=== PATIENT | male | born 1950 | race Caucasian/White ===

== ENCOUNTER 2017-04-06 09:25 | Inpatient (IN) ==
[2017-04-06] MEDS ORDERED: SODIUM CHLORIDE 0.9% 500 ML IV STA ×2 (10:34→12:38)
[2017-04-06 11:02] LABS: ABG Base Excess -7.9 MMOL/L (-2.5-2.5); ABG Oxygen Saturation 96.7 % (95-100); ABG PCO2 41.6 MM HG (35-48); ABG PH 7.263 (7.35-7.45); ABG TCO2 17.2 MMOL/L (23-27); Allen Test Positive; Pt O2 Delivery Device Room Air
[2017-04-06 11:10] LABS: Basophils % 0.1 % (0.0-0.8); Eosinophils # 0.1 10*3/uL (0.0-0.87); Eosinophils % 0.5 % (0.00-10.9); Hematocrit 32.5 VOL% (42.0-52.0); Hemoglobin 10.8 GM/DL (14.0-18.0); Immature Granulocytes % 0.5 %; Immature Granulocytes Absolute 0.05 #; Lymphocytes # 1.2 10*3/uL (1.4-4.0); Lymphocytes % 11.9 % (21.2-54.2); Mean Corpuscular HGB Conc 33.2 GM/DL (32-36); Mean Corpuscular Hemoglobin 31 PG (27-34); Mean Corpuscular Volume 92.6 FL (87-102); Monocytes # 0.6 10*3/uL (0.11-0.8); Monocytes % 6.3 % (1.7-12.7); Neutrophils # 8.1 10*3/uL (1.4-7.4); Neutrophils % 80.7 % (38.7-73.9); Platelet Count 210 T/CUMM (130-400); Red Blood Count 3.51 MC/CUMM (3.8-5.5); Red Cell Distribution Width 13.1 % (9.3-17.3)
[2017-04-06 11:16] LABS: Apearance,Urine CLEAR (Clear); Bilirubin,Urine Negative (Negative); Blood, Urine Small mg/dL (Negative); Glucose,Urine (UA) Negative (Negative); Hyaline Casts,Urine 14 /LPF (0-3); Ketones,Urine Negative (Negative); Mucus,Urine Occasional /LPF (Occasional); Nitrite,Urine Negative (Negative); Protein,Urine Negative; RBC,Urine <1 /HPF (0-4); Urine Color Straw (Yellow); Urine Specific Gravity 1.009 (1.001-1.035); Urine Urobilinogen < 2.0 EU/DL (0.2-1.0); WBC,Urine <1 /HPF (0-6)
[2017-04-06 11:18] LABS: PT Patient Result 10.1 SECS
[2017-04-06 11:24] LABS: Barbiturates Screen,Urine Negative (Negative); Benzodiazepines Screen,Urine Negative (Negative); Cannabinoid Screen,Urine Negative (Negative); Opiate Screen,Urine Positive (Negative); Phencyclidine Screen,Urine Negative (Negative)
[2017-04-06 11:47] LABS: Alanine Aminotransferase 38 U/L (16-61); Albumin 3.8 G/DL (3.4-5.0); Alkaline Phosphatase 71 U/L (45-117); Aspartate Amino Transferase 35 U/L (0-37); Bilirubin,Total < 0.39 MG/DL (0.2-1.0); Blood Urea Nitrogen 47 MG/DL (7-18); CKMB % 1.4 %; Calcium 9.2 MG/DL (8.5-10.1); Glucose 120 MG/DL (74-106); Magnesium 2.3 MG/DL (1.8-2.4); Osmolality,Calculated 289.5 MOS/KG (273-304); Sodium 139 MMOL/L (136-145); Total Protein 7.4 G/DL (6.4-8.3); Troponin I Only < 0.015 NG/ML (0.00-0.045)
[2017-04-06 11:50] LABS: Ammonia 27 UMOL/L (11-32)
[2017-04-06] MEDS ORDERED: LORazepam 2 MG/1 ML VIAL ONE (11:57)
[2017-04-06 11:58] LABS: Potassium 6.6 MMOL/L (3.5-5.1)
[2017-04-06] MEDS ORDERED: LORazepam 2 MG/1 ML VIAL IV STA ×2 (12:01→16:50)
[2017-04-06] MEDS ORDERED: CALCIUM CHLORIDE 1,000 MG/10 ML SYRINGE IV STA (12:06)
[2017-04-06] MEDS ORDERED: SODIUM CHLORIDE 0.9% 1,000 ML IV STA (12:09)
[2017-04-06] MEDS ORDERED: CALCIUM CHLORIDE 1,000 MG/10 ML SYRINGE IV ONE (12:18)
[2017-04-06] MEDS ORDERED: SODIUM POLYSTYRENE SULFATE 15 GM/60 ML BOTTLE ONE ×2 (12:18→16:04)
[2017-04-06] MEDS ORDERED: SODIUM POLYSTYRENE SULFATE 15 GM/60 ML BOTTLE PO STA ×2 (12:19→16:15)
[2017-04-06] MEDS ORDERED: FUROSEMIDE 20 MG/2 ML VIAL ONE (12:22)
[2017-04-06] MEDS ORDERED: FUROSEMIDE 20 MG/2 ML VIAL IV STA (12:38)
[2017-04-06 12:48] LABS: Prolactin 7.8 NG/ML
[2017-04-06] MEDS ORDERED: DEXTROSE 50% 25 GM/50 ML SYRINGE IV ONE (16:05)
[2017-04-06] MEDS ORDERED: INSULIN REGULAR 100 UNIT/ML ONE (16:06)
[2017-04-06] MEDS ORDERED: INSULIN REGULAR 100 UNIT/ML IV STA (16:15)
[2017-04-06] MEDS ORDERED: DEXTROSE 50% 25 GM/50 ML VIAL IV STA (16:15)
[2017-04-06] MEDS ORDERED: ACETAMINOPHEN 325 MG TABLET PO PRN (16:20)
[2017-04-06] MEDS ORDERED: ONDANSETRON 4 MG/2 ML VIAL IV PRN (16:20)
[2017-04-06] MEDS ORDERED: HYDROmorphone 2 MG TABLET PO PRN (16:20)
[2017-04-06 16:31] LABS: Calcium 9.9 MG/DL (8.5-10.1); Osmolality,Calculated 289.5 MOS/KG (273-304)
[2017-04-06 16:32] LABS: Potassium 5.9 MMOL/L (3.5-5.1)
[2017-04-06] MEDS: SODIUM CHLORIDE 0.9% 1,000 ML IV SCH (18:08)
[2017-04-06] MEDS: SODIUM POLYSTYRENE SULFATE 15 GM/60 ML BOTTLE PO SCH (20:16)
[2017-04-06] MEDS: oxyCODONE/ACETAMINOPHEN 5-325 MG TABLET PO SCH ×2 (20:17→22:49)
[2017-04-06] MEDS: PREGABALIN 100 MG CAPSULE PO SCH ×2 (20:17→22:49)
[2017-04-06] MEDS: DOCUSATE SODIUM 100 MG CAPSULE PO SCH (22:48)
[2017-04-06] MEDS: ZALEPLON 5 MG CAPSULE PO SCH (22:48)
[2017-04-06] MEDS: BACLOFEN 20 MG TABLET PO SCH (22:49)
[2017-04-06] MEDS: AMITRIPTYLINE 10 MG TABLET PO SCH (22:49)
[2017-04-06] MEDS: HYOSCYAMINE 0.375 MG PO SCH (22:49)
[2017-04-07] MEDS: SODIUM POLYSTYRENE SULFATE 15 GM/60 ML BOTTLE PO SCH ×3 (01:05→15:58)
[2017-04-07] MEDS: SODIUM CHLORIDE 0.9% 1,000 ML IV SCH ×3 (04:35→23:08)
[2017-04-07 05:28] LABS: Basophils % 0.2 % (0.0-0.8); Eosinophils # 0.1 10*3/uL (0.0-0.87); Hematocrit 29.3 VOL% (42.0-52.0); Hemoglobin 9.6 GM/DL (14.0-18.0); Immature Granulocytes % 0.5 %; Immature Granulocytes Absolute 0.03 #; Lymphocytes # 1.2 10*3/uL (1.4-4.0); Lymphocytes % 20.1 % (21.2-54.2); Mean Corpuscular HGB Conc 32.8 GM/DL (32-36); Mean Corpuscular Hemoglobin 31 PG (27-34); Mean Corpuscular Volume 94.5 FL (87-102); Mean Platelet Volume 9.7 FL (9.6-12.0); Monocytes # 0.5 10*3/uL (0.11-0.8); Monocytes % 8.2 % (1.7-12.7); Neutrophils # 4.1 10*3/uL (1.4-7.4); Platelet Count 175 T/CUMM (130-400); Red Cell Distribution Width 13.5 % (9.3-17.3); White Blood Count 5.9 T/CUMM (4-12)
[2017-04-07 06:15] LABS: Albumin 3.2 G/DL (3.4-5.0); Bilirubin,Total 0.6 MG/DL (0.2-1.0); Calcium 8.5 MG/DL (8.5-10.1); Magnesium 2.1 MG/DL (1.8-2.4); Osmolality,Calculated 294.8 MOS/KG (273-304); Potassium 4.9 MMOL/L (3.5-5.1); Total Protein 6.2 G/DL (6.4-8.3)
[2017-04-07] MEDS ORDERED: DICLOFENAC POTASSIUM 50 MG TABLET PO SCH (09:00)
[2017-04-07] MEDS ORDERED: AZILSARTAN PO SCH (09:00)
[2017-04-07] MEDS ORDERED: CHLORTHALIDONE PO SCH (09:00)
[2017-04-07] MEDS ORDERED: fentaNYL 25 MCG/HR PATCH TRANSDERM SCH (09:00)
[2017-04-07] MEDS: BACLOFEN 20 MG TABLET PO SCH ×2 (10:12→20:50)
[2017-04-07] MEDS: oxyCODONE/ACETAMINOPHEN 5-325 MG TABLET PO SCH ×3 (10:12→20:52)
[2017-04-07] MEDS: ENOXAPARIN 30 MG/0.3 ML SYRINGE SUBCUT SCH (10:13)
[2017-04-07] MEDS: ASPIRIN EC 81 MG TABLET PO SCH (10:14)
[2017-04-07] MEDS: PREGABALIN 100 MG CAPSULE PO SCH ×3 (10:14→20:51)
[2017-04-07] MEDS: DOCUSATE SODIUM 100 MG CAPSULE PO SCH ×2 (10:14→20:50)
[2017-04-07] MEDS: CETIRIZINE 10 MG TABLET PO SCH (10:15)
[2017-04-07] MEDS: PANTOPRAZOLE 40 MG VIAL IV SCH (10:16)
[2017-04-07] MEDS: LIDOCAINE 5% PATCH TRANSDERM SCH (10:16)
[2017-04-07] MEDS: HYOSCYAMINE 0.375 MG PO SCH ×2 (13:23→20:52)
[2017-04-07] MEDS: AMITRIPTYLINE 10 MG TABLET PO SCH (20:50)
[2017-04-07] MEDS: ZALEPLON 5 MG CAPSULE PO SCH (20:50)
[2017-04-08] MEDS: SODIUM POLYSTYRENE SULFATE 15 GM/60 ML BOTTLE PO SCH ×2 (00:19→09:26)
[2017-04-08 05:40] LABS: Basophils % 0.3 % (0.0-0.8); Eosinophils # 0.1 10*3/uL (0.0-0.87); Eosinophils % 2.8 % (0.00-10.9); Hematocrit 28.8 VOL% (42.0-52.0); Hemoglobin 9.4 GM/DL (14.0-18.0); Immature Granulocytes % 0.3 %; Immature Granulocytes Absolute 0.01 #; Lymphocytes # 1.1 10*3/uL (1.4-4.0); Lymphocytes % 28.9 % (21.2-54.2); Mean Corpuscular HGB Conc 32.6 GM/DL (32-36); Mean Corpuscular Hemoglobin 31 PG (27-34); Mean Corpuscular Volume 94.4 FL (87-102); Mean Platelet Volume 10.2 FL (9.6-12.0); Monocytes # 0.4 10*3/uL (0.11-0.8); Monocytes % 10.1 % (1.7-12.7); Neutrophils # 2.3 10*3/uL (1.4-7.4); Neutrophils % 57.6 % (38.7-73.9); Platelet Count 169 T/CUMM (130-400); Red Blood Count 3.05 MC/CUMM (3.8-5.5); Red Cell Distribution Width 13.4 % (9.3-17.3)
[2017-04-08 06:24] LABS: Calcium 8.1 MG/DL (8.5-10.1); Magnesium 1.8 MG/DL (1.8-2.4); Potassium 4.5 MMOL/L (3.5-5.1)
[2017-04-08] MEDS ORDERED: PNEUMOCOCCAL VACCINE (13 VALENT) 0.5 ML SYRINGE IM ONE (08:00)
[2017-04-08] MEDS ORDERED: INFLUENZA VIRUS VACCINE 0.5 ML SYRINGE IM ONE (08:00)
[2017-04-08 08:48] VITALS: BP 189/91
[2017-04-08] MEDS ORDERED: FUROSEMIDE 20 MG TABLET PO SCH (09:00)
[2017-04-08] MEDS ORDERED: POTASSIUM CHLORIDE 20 MEQ TABLET PO SCH (09:00)
[2017-04-08] MEDS: CETIRIZINE 10 MG TABLET PO SCH (09:20)
[2017-04-08] MEDS: ENOXAPARIN 30 MG/0.3 ML SYRINGE SUBCUT SCH (09:20)
[2017-04-08] MEDS: ASPIRIN EC 81 MG TABLET PO SCH (09:20)
[2017-04-08] MEDS: PANTOPRAZOLE 40 MG VIAL IV SCH (09:20)
[2017-04-08] MEDS: BACLOFEN 20 MG TABLET PO SCH (09:20)
[2017-04-08] MEDS: DOCUSATE SODIUM 100 MG CAPSULE PO SCH (09:21)
[2017-04-08] MEDS: oxyCODONE/ACETAMINOPHEN 5-325 MG TABLET PO SCH (09:21)
[2017-04-08] MEDS: PREGABALIN 100 MG CAPSULE PO SCH (09:21)
[2017-04-08] MEDS: LIDOCAINE 5% PATCH TRANSDERM SCH (09:21)
[2017-04-08] MEDS: HYOSCYAMINE 0.375 MG PO SCH (09:26)
[2017-04-08] MEDS: SODIUM CHLORIDE 0.9% 1,000 ML IV SCH (09:27)
[2017-04-26] MEDS ORDERED: RISEDRONATE SODIUM 150 MG PO SCH (09:00)
== END 2017-04-08 13:50 | DRG 918 ==
LOC: N.ED 09:25 → N.EDINP 16:57 → N.ICU 20:40 → N.4E 04-07 13:48
PROVIDERS: ADMIT Family Medicine; ATTEND Family Medicine

== ENCOUNTER 2018-09-19 11:48 | Inpatient (IN) ==
[2018-09-19] MEDS ORDERED: SODIUM CHLORIDE 0.9% 1,000 ML IV STA ×2 (12:52→14:27)
[2018-09-19 13:47] LABS: Basophils % 0.2 % (0.0-0.8); Eosinophils # 0.2 10*3/uL (0.0-0.87); Eosinophils % 1.6 % (0.00-10.9); Hematocrit 34.8 VOL% (42.0-52.0); Hemoglobin 11.5 GM/DL (14.0-18.0); Immature Granulocytes % 0.5 %; Immature Granulocytes Absolute 0.05 #; Lymphocytes # 1.8 10*3/uL (1.4-4.0); Lymphocytes % 17.6 % (21.2-54.2); Mean Corpuscular Volume 88.8 FL (87-102); Mean Platelet Volume 9.4 FL (9.6-12.0); Monocytes % 8.5 % (1.7-12.7); Neutrophils % 71.6 % (38.7-73.9); Platelet Count 203 T/CUMM (130-400); Red Blood Count 3.92 MC/CUMM (3.8-5.5); Red Cell Distribution Width 13.3 % (9.3-17.3); White Blood Count 10.2 T/CUMM (4-12)
[2018-09-19 14:22] LABS: Alanine Aminotransferase 60 U/L (16-61); Albumin 3.3 G/DL (3.4-5.0); Alkaline Phosphatase 79 U/L (45-117); Aspartate Amino Transferase 32 U/L (0-37); Bilirubin,Total < 0.39 MG/DL (0.2-1.0); Blood Urea Nitrogen 82 MG/DL (7-18); Calcium 7.4 MG/DL (8.5-10.1); Glucose 96 MG/DL (74-106); Osmolality,Calculated 294.1 MOS/KG (273-304); Total Protein 6.4 G/DL (6.4-8.3)
[2018-09-19] MEDS ORDERED: POTASSIUM CHLORIDE 20 MEQ TABLET PO STA (14:27)
[2018-09-19] MEDS ORDERED: ONDANSETRON 4 MG/2 ML VIAL IV PRN (14:30)
[2018-09-19 14:48] LABS: Apearance,Urine CLEAR (Clear); Bacteria,Urine Occasional /HPF (Few); Bilirubin,Urine Negative (Negative); Blood, Urine Small mg/dL (Negative); Glucose,Urine (UA) Negative (Negative); Hyaline Casts,Urine 11 /LPF (0-3); Ketones,Urine Negative (Negative); Mucus,Urine Occasional /LPF (Occasional); Nitrite,Urine Negative (Negative); Protein,Urine Negative; RBC,Urine <1 /HPF (0-4); Urine Color Yellow (Yellow); Urine Specific Gravity 1.006 (1.001-1.035); Urine Urobilinogen < 2.0 EU/DL (0.2-1.0); WBC,Urine 1 /HPF (0-6)
[2018-09-19] MEDS: SODIUM CHLORIDE 0.9% 1,000 ML IV SCH (17:21)
[2018-09-19] MEDS ORDERED: POLYVINYL ALCOHOL 1.4% OPH SOLN 15 ML BOTTLE BOTH EYES PRN (17:25)
[2018-09-19] MEDS ORDERED: OXYMORPHONE 10 MG PO SCH (21:00)
[2018-09-19] MEDS: PREGABALIN 100 MG CAPSULE PO SCH (21:43)
[2018-09-19] MEDS: BACLOFEN 20 MG TABLET PO SCH (21:43)
[2018-09-19] MEDS: DOCUSATE SODIUM 100 MG CAPSULE PO SCH (21:43)
[2018-09-19] MEDS: cycloSPORINE OPH EMUL 1 VIAL BOTH EYES SCH (21:43)
[2018-09-19] MEDS: NORTRIPTYLINE 25 MG CAPSULE PO SCH (21:43)
[2018-09-19] MEDS: TAMSULOSIN 0.4 MG CAPSULE PO SCH (21:43)
[2018-09-20 05:03] LABS: Basophils % 0.1 % (0.0-0.8); Eosinophils # 0.2 10*3/uL (0.0-0.87); Eosinophils % 2.1 % (0.00-10.9); Hemoglobin 11.8 GM/DL (14.0-18.0); Immature Granulocytes % 0.4 %; Immature Granulocytes Absolute 0.03 #; Lymphocytes # 1.2 10*3/uL (1.4-4.0); Lymphocytes % 15.1 % (21.2-54.2); Mean Corpuscular HGB Conc 33.7 GM/DL (32-36); Mean Corpuscular Volume 89.1 FL (87-102); Mean Platelet Volume 10.2 FL (9.6-12.0); Monocytes % 7.6 % (1.7-12.7); Neutrophils % 74.7 % (38.7-73.9); Platelet Count 223 T/CUMM (130-400); Red Blood Count 3.93 MC/CUMM (3.8-5.5); Red Cell Distribution Width 13.5 % (9.3-17.3); White Blood Count 7.6 T/CUMM (4-12)
[2018-09-20 05:28] LABS: Parathyroid Hormone Intact 250.4 PG/ML (18.4-80.1); Thyroid Stimulating Hormone 0.576 uIU/ml (0.358-3.74)
[2018-09-20] MEDS: SODIUM CHLORIDE 0.9% 1,000 ML IV SCH ×6 (06:56→23:14)
[2018-09-20] MEDS: ACETAMINOPHEN 325 MG TABLET PO PRN (07:50)
[2018-09-20] MEDS: PREGABALIN 100 MG CAPSULE PO SCH ×2 (09:34→23:06)
[2018-09-20] MEDS: ASPIRIN EC 81 MG TABLET PO SCH (09:34)
[2018-09-20] MEDS: BACLOFEN 20 MG TABLET PO SCH ×2 (09:34→23:06)
[2018-09-20] MEDS: TAMSULOSIN 0.4 MG CAPSULE PO SCH ×2 (09:34→23:06)
[2018-09-20] MEDS: oxyCODONE/ACETAMINOPHEN 5-325 MG TABLET PO SCH ×3 (09:34→20:25)
[2018-09-20] MEDS: PANTOPRAZOLE 40 MG TABLET PO SCH (09:34)
[2018-09-20] MEDS: DOCUSATE SODIUM 100 MG CAPSULE PO SCH ×2 (09:34→23:06)
[2018-09-20] MEDS: cycloSPORINE OPH EMUL 1 VIAL BOTH EYES SCH ×2 (09:35→23:06)
[2018-09-20 09:53] LABS: Calcium 7.7 MG/DL (8.5-10.1); Osmolality,Calculated 303.6 MOS/KG (273-304)
[2018-09-20 13:03] LABS: Uric Acid 9.9 MG/DL (3.5-7.2)
[2018-09-20] MEDS: POTASSIUM CHLORIDE 20 MEQ TABLET PO PRN ×3 (14:04→17:14)
[2018-09-20] MEDS: ENOXAPARIN 30 MG/0.3 ML SYRINGE SUBCUT SCH (19:08)
[2018-09-20] MEDS: NORTRIPTYLINE 25 MG CAPSULE PO SCH (23:05)
[2018-09-21] MEDS: DOCUSATE SODIUM 100 MG CAPSULE PO SCH ×2 (08:50→21:33)
[2018-09-21] MEDS: TAMSULOSIN 0.4 MG CAPSULE PO SCH ×2 (08:50→21:33)
[2018-09-21] MEDS: oxyCODONE/ACETAMINOPHEN 5-325 MG TABLET PO SCH ×3 (08:50→21:33)
[2018-09-21] MEDS: CALCIUM (CARBONATE) 600 MG TABLET PO SCH (08:50)
[2018-09-21] MEDS: BACLOFEN 20 MG TABLET PO SCH ×2 (08:50→21:32)
[2018-09-21] MEDS: CHOLECALCIFEROL 5,000 UNIT TABLET PO SCH (08:50)
[2018-09-21] MEDS: PREGABALIN 100 MG CAPSULE PO SCH ×2 (08:51→21:33)
[2018-09-21] MEDS: PANTOPRAZOLE 40 MG TABLET PO SCH (08:51)
[2018-09-21] MEDS: cycloSPORINE OPH EMUL 1 VIAL BOTH EYES SCH ×2 (08:51→21:35)
[2018-09-21] MEDS: ASPIRIN EC 81 MG TABLET PO SCH (08:51)
[2018-09-21 16:18] LABS: Calcium 8.2 MG/DL (8.5-10.1)
[2018-09-21] MEDS: SODIUM CHLORIDE 0.9% 1,000 ML IV SCH ×2 (16:32→19:00)
[2018-09-21] MEDS: ENOXAPARIN 30 MG/0.3 ML SYRINGE SUBCUT SCH (18:20)
[2018-09-21] MEDS: NORTRIPTYLINE 25 MG CAPSULE PO SCH (21:32)
[2018-09-22] MEDS: ACETAMINOPHEN 325 MG TABLET PO PRN (02:10)
[2018-09-22 03:51] LABS: Basophils % 0.2 % (0.0-0.8); Eosinophils # 0.2 10*3/uL (0.0-0.87); Eosinophils % 4.7 % (0.00-10.9); Hematocrit 33.3 VOL% (42.0-52.0); Hemoglobin 11.1 GM/DL (14.0-18.0); Immature Granulocytes % 0.4 %; Immature Granulocytes Absolute 0.02 #; Lymphocytes # 1.3 10*3/uL (1.4-4.0); Lymphocytes % 28.5 % (21.2-54.2); Mean Corpuscular HGB Conc 33.3 GM/DL (32-36); Mean Corpuscular Volume 89.5 FL (87-102); Mean Platelet Volume 10.2 FL (9.6-12.0); Monocytes % 8.8 % (1.7-12.7); Neutrophils % 57.4 % (38.7-73.9); Platelet Count 203 T/CUMM (130-400); Red Blood Count 3.72 MC/CUMM (3.8-5.5); Red Cell Distribution Width 13.2 % (9.3-17.3); White Blood Count 4.7 T/CUMM (4-12)
[2018-09-22 04:08] LABS: Calcium 8.6 MG/DL (8.5-10.1); Osmolality,Calculated 285.1 MOS/KG (273-304)
[2018-09-22 08:05] VITALS: BP 150/91
[2018-09-22] MEDS: CHOLECALCIFEROL 5,000 UNIT TABLET PO SCH (08:50)
[2018-09-22] MEDS: DOCUSATE SODIUM 100 MG CAPSULE PO SCH (08:50)
[2018-09-22] MEDS: CALCIUM (CARBONATE) 600 MG TABLET PO SCH (08:50)
[2018-09-22] MEDS: oxyCODONE/ACETAMINOPHEN 5-325 MG TABLET PO SCH (08:50)
[2018-09-22] MEDS: PREGABALIN 100 MG CAPSULE PO SCH (08:50)
[2018-09-22] MEDS: cycloSPORINE OPH EMUL 1 VIAL BOTH EYES SCH (08:51)
[2018-09-22] MEDS: BACLOFEN 20 MG TABLET PO SCH (08:51)
[2018-09-22] MEDS: PANTOPRAZOLE 40 MG TABLET PO SCH (08:51)
[2018-09-22] MEDS: ASPIRIN EC 81 MG TABLET PO SCH (08:51)
[2018-09-22] MEDS: TAMSULOSIN 0.4 MG CAPSULE PO SCH (08:51)
[2018-09-22] MEDS ORDERED: METOPROLOL TARTRATE 25 MG TABLET PO SCH (09:00)
== END 2018-09-22 13:00 | disposition home or self-care (01) | DRG 312 ==
LOC: N.EDINP 11:48 → N.ED 11:48 → N.TELEN 15:20
PROVIDERS: ADMIT Family Medicine; ATTEND Family Medicine

== ENCOUNTER 2020-09-21 19:12 | Observation (INO) ==
[2020-09-21] MEDS ORDERED: ASPIRIN 325 MG TABLET PO STA (19:34)
[2020-09-21] MEDS ORDERED: ONDANSETRON 4 MG/2 ML VIAL IV ONE (19:34)
[2020-09-21] MEDS ORDERED: LABETALOL 20 MG/4 ML SYRINGE IV STA ×2 (19:35→20:44)
[2020-09-21] MEDS ORDERED: ACETAMINOPHEN 325 MG TABLET PO ONE (19:36)
[2020-09-21 20:02] LABS: Basophils % 0.2 % (0.0-0.8); Eosinophils # 0.2 10*3/uL (0.0-0.87); Eosinophils % 2.5 % (0.00-10.9); Hematocrit 40.8 VOL% (42.0-52.0); Hemoglobin 13.6 GM/DL (14.0-18.0); Immature Granulocytes % 0.6 %; Immature Granulocytes Absolute 0.04 #; Lymphocytes # 1.4 10*3/uL (1.4-4.0); Lymphocytes % 22.4 % (21.2-54.2); Mean Corpuscular HGB Conc 33.3 GM/DL (32-36); Mean Corpuscular Volume 87.4 FL (87-102); Mean Platelet Volume 9.8 FL (9.6-12.0); Monocytes % 7.1 % (1.7-12.7); Neutrophils % 67.2 % (38.7-73.9); Platelet Count 227 T/CUMM (130-400); Red Blood Count 4.67 MC/CUMM (3.8-5.5); Red Cell Distribution Width 12.8 % (9.3-17.3); White Blood Count 6.4 T/CUMM (4-12)
[2020-09-21 20:16] LABS: PT Patient Result 10.8 SECS (10.5-12.0)
[2020-09-21 20:27] LABS: Alanine Aminotransferase 34 U/L (16-61); Albumin 3.6 G/DL (3.4-5.0); Alkaline Phosphatase 98 U/L (45-117); Aspartate Amino Transferase 27 U/L (0-37); Bilirubin,Total < 0.39 MG/DL (0.2-1.0); Blood Urea Nitrogen 15 MG/DL (7-18); Calcium 8.5 MG/DL (8.5-10.1); Carbon Dioxide 31 MMOL/L (21-32); Estimated Glom Filtration Rate 99 ML/MIN; Glucose 113 MG/DL (74-106); Osmolality,Calculated 284.1 MOS/KG (273-304); Potassium 4.1 MMOL/L (3.5-5.1); Sodium 142 MMOL/L (136-145); Total Protein 7.2 G/DL (6.4-8.2)
[2020-09-21] MEDS ORDERED: ACETAMINOPHEN 325 MG TABLET PO PRN (20:53)
[2020-09-21] MEDS ORDERED: ONDANSETRON 4 MG/2 ML VIAL IV PRN (20:53)
[2020-09-21] MEDS ORDERED: hydrALAZINE 20 MG/1 ML VIAL IV PRN (20:53)
[2020-09-21] MEDS ORDERED: BISACODYL 5 MG TABLET PO PRN (20:53)
[2020-09-21] MEDS ORDERED: GLUCAGON 1 MG VIAL IM PRN (20:53)
[2020-09-21] MEDS ORDERED: DEXTROSE 50% 25 GM/50 ML VIAL IV PRN (20:53)
[2020-09-21] MEDS ORDERED: amLODIPine 5 MG TABLET PO STA (20:58)
[2020-09-21] MEDS ORDERED: ENOXAPARIN 40 MG/0.4 ML SYRINGE SUBCUT SCH (21:00)
[2020-09-22] MEDS: METOPROLOL TARTRATE 25 MG TABLET PO SCH ×2 (00:21→09:00)
[2020-09-22] MEDS: BACLOFEN 20 MG TABLET PO SCH ×2 (00:21→09:01)
[2020-09-22] MEDS: TAMSULOSIN 0.4 MG CAPSULE PO SCH ×2 (00:21→09:00)
[2020-09-22] MEDS ORDERED: PANTOPRAZOLE 40 MG VIAL IV ONE (01:06)
[2020-09-22 05:12] LABS: Basophils % 0.3 % (0.0-0.8); Eosinophils # 0.2 10*3/uL (0.0-0.87); Eosinophils % 2.2 % (0.00-10.9); Hematocrit 38.7 VOL% (42.0-52.0); Hemoglobin 13.4 GM/DL (14.0-18.0); Immature Granulocytes % 0.3 %; Immature Granulocytes Absolute 0.02 #; Lymphocytes % 29.5 % (21.2-54.2); Mean Corpuscular HGB Conc 34.6 GM/DL (32-36); Mean Corpuscular Volume 86.4 FL (87-102); Mean Platelet Volume 9.7 FL (9.6-12.0); Monocytes % 11.3 % (1.7-12.7); Neutrophils % 56.4 % (38.7-73.9); Platelet Count 212 T/CUMM (130-400); Red Blood Count 4.48 MC/CUMM (3.8-5.5); Red Cell Distribution Width 12.8 % (9.3-17.3); White Blood Count 6.7 T/CUMM (4-12)
[2020-09-22 05:51] LABS: Calcium 8.2 MG/DL (8.5-10.1); Osmolality,Calculated 285.8 MOS/KG (273-304); Potassium 3.9 MMOL/L (3.5-5.1)
[2020-09-22 07:41] VITALS: BP 135/74
[2020-09-22] MEDS ORDERED: ASPIRIN EC 81 MG TABLET PO SCH (09:00)
[2020-09-22] MEDS ORDERED: CETIRIZINE 10 MG TABLET PO SCH (09:00)
[2020-09-22] MEDS ORDERED: PANTOPRAZOLE 40 MG TABLET PO SCH (09:00)
[2020-09-23] MEDS ORDERED: amLODIPine 10 MG TABLET PO SCH (09:00)
== END 2020-09-22 10:33 | disposition home or self-care (01) ==
LOC: N.ED 19:12 → N.EDINP 19:12 → N.TELEN 22:30
PROVIDERS: ADMIT Internal Medicine Geriatric Medicine; ATTEND Internal Medicine Geriatric Medicine